=== PATIENT | female | born 1975 | race Caucasian/White ===

== ENCOUNTER 2022-12-05 07:30 | Outpatient (CLI) | payer BC, SELFPAY | END 2022-12-05 07:31 | disposition home or self-care (01) | LOC: ANHAUDIO 07:32 | PROVIDERS: PCP Physician Assistant; Visit Provider Physician Assistant | DX: H91.93 Unspecified hearing loss, bilateral (principal) | CPT/HCPCS: 99199 ==

== ENCOUNTER 2023-04-20 01:43 | Emergency (ER) | payer BC, SELFPAY ==
[2023-04-20] VITALS (13 sets, daily range): BP systolic 106–142; BP diastolic 61–91; PULSE 54–68; RESP 10–16; TEMP 36.2; O2SAT 96–100
--- NOTE | ~2023-04-20 | XR_ITS ---
Clinical Indication: Chest pain PA and lateral views of the chest: Comparison: 01/23/2017 Findings: The lungs are clear, without evidence of focal consolidation or pleural effusion. Cardiome diastinal silhouette is within normal limits. Bones and soft tissues are unremarkable. Impression: Normal chest. Reviewed, dictated and finalized at location . Impression: Normal chest.
--- NOTE | 2023-04-20 01:50 | ECG_ITS ---
Measurements Intervals [place] Rate: 62 P: 20 CT: 150 QRS: -19 QRSD: 105 T: 71 QT: 407 QTc: 416 Interpretive Statements SINUS RHYTHM LOW QRS [place]OLTAGE PREVIOUS iNFERIOR MYOCARDIAL INFARCTION ABNORMAL ECG NO PREVIOUS ECG AVAILABLE FOR COMPARISON Electronically Signed On 04-20-2023 13:03:20 CDT by Morris Simon M.D.
[2023-04-20 02:08] LABS: Basophils Percent Auto 0.4 % (0.2-1.2); Eosinophils Absolute Auto 0.1 K/mm3 (0-0.3); Eosinophils Percent Auto 1.7 % (0-4.4); Hematocrit 41.4 % (37.0-47.0); Immature Granulocyte Absolute 0.13 K/mm3 (0.00-0.031); Immature Granulocyte Percent A 1.5 % (0-0.5); Lymphocytes Absolute Auto 2.83 K/mm3 (0.9-3.2); Lymphocytes Percent Auto 33.4 % (18.3-44.2); Mean Corpuscular HGB Conc 31.4 g/dl (32-36); Mean Corpuscular Hemoglobin 27.1 pg (26-34); Mean Corpuscular Volume 86.4 fl (80-100); Mean Platelet Volume 9.5 fl (7.4-10.4); Monocytes Absolute Auto 0.6 K/mm3 (0.1-0.6); Neutrophils Absolute Auto 4.8 K/mm3 (1.3-6.7); Platelet Count Result 218 k/mm3 (150-375); Red Blood Count 4.79 M/mm3 (4.2-5.4); White Blood Count 8.5 K/mm3 (4.5-10.0)
[2023-04-20 02:18] LABS: Alanine Aminotransferase 27 U/L (6-35); Albumin Level 3.7 g/dL (3.5-5.1); Alkaline Phosphatase 65 U/L (38-126); Anion Gap 3 mmol/L (8-16); Aspartate Amino Transferase 24 U/L (14-36); Bilirubin,Total 0.5 mg/dL (0.2-1.3); Blood Urea Nitrogen 13 mg/dL (7-17); Calcium 9.1 mg/dL (8.4-10.2); Carbon Dioxide 26 mmol/L (22-30); Chloride 104 mmol/L (98-107); Estimated CRCL calculation 104 ml/min; Estimated Glomerular Filt Rate > 60; Glucose 105 mg/dL (65-110); Lipase 114 U/L (23-300); Potassium 3.9 mmol/L (3.4-5.0); Sodium 133 mmol/L (137-145)
[2023-04-20 02:20] LABS: Prothrombin Time 13.1 Seconds (11.1-14.7)
[2023-04-20 02:21] LABS: Partial Thromboplastin Time 30.9 SECONDS (22.3-36.8)
[2023-04-20 02:30] LABS: Troponin I < 0.012 ng/mL (0.000-0.034)
--- NOTE | 2023-04-20 03:42 | ED.GENADULT ---
HPI - General Adult General Chief complaint: Chest Pain Stated complaint: right sided chest pain Time Seen by Provider: 04/20/23 02:55 History of Present Illness HPI narrative: Patient 47-year-old female who presents the emergency department with chief complaint of chest pain. The patient reports that tonight she had an episode of pain in her anterior chest that radiated up into her mouth. Patient states that she has had a recent stress test and was concerned and decided to come to the emergency department the patient states the pain is getting better now that she is arrived in the emergency department does report that she has been under a large amount of stress lately Related Data Home Medications Medication Instructions Recorded Confirmed ferrous sulfate 325 mg (65 mg 325 mg PO DAILY 12/04/22 12/04/22 iron) tablet Allergies Allergy/AdvReac Type Severity Reaction Status Date / Time No Known Allergies Allergy Unknown Verified 12/04/22 15:40 Review of Systems Review of Systems: A 10 system review of systems was completed on the patient and is negative except for what is stated in the HPI. Nursing and ancillary documentation was reviewed. [facility] Past Medical History Medical History (Updated 12/04/22 @ 16:19 by Eddie Ybarra MD) Anemia Hearing decreased Surgical History Surgical History (Updated 12/05/22 @ 11:58 by STACIE Betts) Delivery by section 03/25/1999 /02/04/2001/ 2004 H/O abdominoplasty H/O tubal ligation (05/17/05) bilateral tubal ligation / myomectomy History of endometrial ablation (03/14/06) History of hysteroscopy (03/28/02) suction D&C incomplete AB Hx of laparoscopy (03/14/06) dx laparoscopy/ adhesiolysis/ hscope D&C Novasure ablation Family History Family History (Updated 12/04/22 @ 15:44 by STACIE Betts) Father Acute myocardial infarction Hypertension Grandparent Breast cancer maternal grandmother Mother Hypertension Social History Social History (Updated 12/04/22 @ 15:45 by STACIE Betts) Smoking status: Never smoker Alcohol intake: never Substance use: never Substance use type: does not use Living arrangements: other Additional living arrangements comments: Occupation/Education: occupation Additional occupation/education comments: healthcare sales Gender identity (if verbalized by the patient): Female Sexual Orientation (if Verbalized by the Patient): Straight or Heterosexual Exam Narrative: GENERAL: Well-appearing, well-nourished, and in no acute distress. HEAD: Normocephalic, atraumatic. EYES: PERRLA and EOMI. ENT: Nares clear, no rhinorrhea or epistaxis. Mucous membranes moist. NECK: Supple. CHEST: Clear to auscultation. No respiratory distress. HEART: Regular rate and rhythm. No murmur heard. Normal peripheral pulses. ABDOMEN: Soft, nontender, nondistended, normal active bowel sounds. EXTREMITIES: Normal range of motion. No edema. SKIN: Warm, dry, no rash. NEURO: No focal deficits. Alert and oriented x3. PSYCH: Normal mood and affect. Course Vital Signs Vital signs: Vital Signs Temperature 36.2 C L 04/20/23 01:45 Pulse Rate 68 04/20/23 01:45 Respiratory Rate 14 04/20/23 01:45 Blood Pressure 142/84 H 04/20/23 01:45 Pulse Oximetry 100 04/20/23 01:45 Oxygen Delivery Room Air 04/20/23 01:45 Temperature 36.2 C L 04/20/23 01:45 Pulse Rate 60 04/20/23 04:15 Respiratory Rate 15 04/20/23 04:15 Blood Pressure 120/87 04/20/23 04:01 Pulse Oximetry 96 04/20/23 04:15 Oxygen Delivery Room Air 04/20/23 02:58 Medical Decision Making [facility] Narrative Medical decision making narrative: Differential diagnoses ACS, atypical chest pain. Laboratory studies were obtained and patient normal CBC normal electrolytes initial troponin 3-hour delta troponin was negative Chest x-ray showed no focal infiltrate EKG shows sinus r
[2023-04-20 05:11] LABS: Troponin I < 0.012 ng/mL (0.000-0.034)
== END 2023-04-20 05:34 | disposition home or self-care (01) ==
PROVIDERS: Emergency Provider Emergency Medicine; PCP Physician Assistant
DX: R07.89 Other chest pain (principal); Z86.2 Personal history of diseases of the blood and blood-forming organs and certain disorders involving the immune mechanism; R94.31 Abnormal electrocardiogram [ECG] [EKG]
CPT/HCPCS: 36415; 71046; 80053; 83690; 84484; 85025; 85610; 85730; 93005; 99284